=== PATIENT | female | born 1970 | race Caucasian/White ===

== ENCOUNTER 2021-01-10 12:35 | Day surgery (SDCO) | payer MEDICARE ==
[~2021-01-10] VITALS: Ht 149.9 cm; Wt 83.5 kg
[~2021-01-10 12:35] MED LIST: ADVAIR 250-501 EACH INH; BUSPIRONE HCL15 MG PO; CRESTOR20 MG PO; CYCLOBENZAPRINE10 MG PO; DIFLUCAN 100MG100 MG PO; EFFIENT10 MG PO; FARXIGA10 MG PO; JANUMET 50-1,01 EACH PO; LASIX20 MG PO; LEXAPRO20 MG PO; LOPRESSOR25 MG PO; LOVAZA1 GM PO; MUCINEX 600MG600 MG PO; NICOTINE PATCH1 EAC2 TD; NORVASC5 MG PO; PLAVIX75 MG PO; PREDNISONE 20MG20 MG PO; PREDNISONE5 MG PO; ROBITUSSIN W/CODEINE PO; SINGULAIR10 MG PO; TESSALON PERLE100 MG PO; TRESIBA FL100 UNIT/1 SC; VIBRAMYCIN100 MG PO
[2021-01-10 13:48] LABS: BASOPHIL 0.2 % (0-2); EOSINOPHIL 0.2 % (0-5); HCT 52.7 % (37.0-47.0); HGB 16.5 g/dl (12.5-16.0); LYMPHOCYTE 5.5 % (15-48); MCH 27.7 pg (25.0-31.0); MCHC 31.3 g/dL (32.0-36.0); MCV 88.6 fL (78.0-100.0); MONOCYTE 7.9 % (0-12); MPV 10.1 fL (6.0-9.5); NEUTROPHIL 85.6 % (41-80); NRBC 0; PLT 285 K/uL (150-400); RBC 5.95 M/uL (4.20-5.40); RDW 14.6 % (11.5-14.0); WBC 16.5 K/uL (4.0-10.5)
[2021-01-10 13:57] LABS: ALBUMIN 3.5 g/dL (3.4-5.0); BILIRUBIN - TOTAL 0.4 mg/dL (0.2-1.0); BUN/CREAT RATIO (CALC) 42.6 RATIO; CREATININE 0.54 mg/dL (0.51-0.95); GLOBULIN (CALCULATION) 3.4 g/dL; POTASSIUM 4.2 mmol/L (3.5-5.1); TOTAL PROTEIN 6.9 g/dL (6.4-8.2)
[2021-01-10 14:33] LABS: CORONAVIRUS 2019 SARS-COV-2 NEGATIVE (NEGATIVE); INFLUENZA A NAA NEGATIVE (NEGATIVE)
[2021-01-10] MEDS ORDERED: TRELEGY ELLIPT1 EACH PO (17:31)
[2021-01-11 06:03] LABS: BASOPHIL 0.2 % (0-2); EOSINOPHIL 0.2 % (0-5); HCT 48.2 % (37.0-47.0); HGB 15.2 g/dl (12.5-16.0); LYMPHOCYTE 11.1 % (15-48); MCH 28.1 pg (25.0-31.0); MCHC 31.5 g/dL (32.0-36.0); MCV 89.1 fL (78.0-100.0); MONOCYTE 9.3 % (0-12); MPV 9.4 fL (6.0-9.5); NEUTROPHIL 78.7 % (41-80); NRBC 0; PLT 237 K/uL (150-400); RBC 5.41 M/uL (4.20-5.40); RDW 14.4 % (11.5-14.0); WBC 12.5 K/uL (4.0-10.5)
[2021-01-11 06:21] LABS: BILIRUBIN - TOTAL 0.4 mg/dL (0.2-1.0); C-REACTIVE PROTEIN 5.5 mg/dL (<=0.90); CREATININE 0.5 mg/dL (0.51-0.95); GLOBULIN (CALCULATION) 3.6 g/dL; MAGNESIUM 2.1 mg/dL (1.8-2.4); PHOSPHORUS 3.8 mg/dL (2.6-4.7); POTASSIUM 4.5 mmol/L (3.5-5.1); TOTAL PROTEIN 6.6 g/dL (6.4-8.2)
--- NOTE | 2021-01-11 12:03 | NUR ---
reports that she is having some increased shortness of air, leaning over the bedside table looks to be in mild distress. o2 sat was taking 88% on 3l nc. notifed dr. casas of the distress and unable to give the scheduled breathing treatments or the prn breathing treatments at this time. new orders to give a one time order for ativan 0.5mg and to monitor for changes. 1207 ativan 0.5mg po was given and o2 sat was checked and it is 89% on 3 1/2 l nc. will monitor for changes. reports at this time it is some better.
--- NOTE | 2021-01-11 17:54 | NUR ---
1751 COMPLINTS OF INCREASED SHORTNESS OF AIR, SEEMS TO BE IN MILD DISTRESS AND O2 SAT 90% ON 3L NC.
--- NOTE | 2021-01-11 17:57 | NUR ---
1751 VENTOLIN 2.5MG BREATHING NEBS GIVEN WILL MONITOR FOR CHANGES, O2 SAT 90% ON 3L NC. 1756 DR. ACOSTA WAS NOTIFED AND THERE ARE NO NEW ORDERS AT THIS TIME. WILL CONTINUE TO MONITOR FOR CHANGES.
--- NOTE | 2021-01-11 18:10 | NUR ---
1805 BREATHIG TREATMENT HAS FINISHED AND REPORTS THAT SHE IS FEELING MUCH BETTER, BREATHING A LITTLE BETTER. O2 SAT 90% ON 3L NC. WILL CONTINUE TO MONITOR FOR CHANGES. DR. ACOSTA HAS ORDERED SOME MUNICEX TO START TONIGHT.
[2021-01-12 04:41] LABS: BASOPHIL 0.2 % (0-2); EOSINOPHIL 0 % (0-5); HCT 51.2 % (37.0-47.0); LYMPHOCYTE 10.1 % (15-48); MCH 27.7 pg (25.0-31.0); MCHC 31.3 g/dL (32.0-36.0); MCV 88.7 fL (78.0-100.0); MONOCYTE 8.6 % (0-12); MPV 9.4 fL (6.0-9.5); NEUTROPHIL 80.7 % (41-80); NRBC 0; PLT 250 K/uL (150-400); RBC 5.77 M/uL (4.20-5.40); WBC 11.3 K/uL (4.0-10.5)
[2021-01-12 05:12] LABS: BILIRUBIN - TOTAL 0.3 mg/dL (0.2-1.0); BUN/CREAT RATIO (CALC) 51.2 RATIO; CREATININE 0.43 mg/dL (0.51-0.95); POTASSIUM 4.2 mmol/L (3.5-5.1)
[2021-01-12] MEDS ORDERED: SINGULAIR10 MG PO (10:07)
[2021-01-12] MEDS ORDERED: LACTOBACILLUS1 EACH PO (10:07)
[2021-01-12] MEDS ORDERED: PREDNISONE 10MG10 MG PO (10:07)
[2021-01-12] MEDS ORDERED: DUONEB 2.5-0.5M1 AMP NEB (10:07)
[2021-01-12] MEDS ORDERED: SPIRIVA 18MCG18 MCG INH (10:07)
[2021-01-12] MEDS ORDERED: SYMBICORT 80-10.2 GM INH (10:07)
== END 2021-01-12 11:02 | disposition home or self-care (01) ==
LOC: FER 12:35 → FMS 14:51
PROVIDERS: Internal Medicine; ADMIT Family Medicine
DX: J44.1 Chronic obstructive pulmonary disease with (acute) exacerbation (principal); J44.0 Chronic obstructive pulmonary disease with (acute) lower respiratory infection; J18.9 Pneumonia, unspecified organism; E11.9 Type 2 diabetes mellitus without complications; I10 Essential (primary) hypertension; I25.10 Atherosclerotic heart disease of native coronary artery without angina pectoris; E78.5 Hyperlipidemia, unspecified; I25.2 Old myocardial infarction; G47.33 Obstructive sleep apnea (adult) (pediatric); Z88.0 Allergy status to penicillin; Z88.8 Allergy status to other drugs, medicaments and biological substances; Z79.899 Other long term (current) drug therapy; Z20.822 Contact with and (suspected) exposure to COVID-19
CPT/HCPCS: 36415; 71045; 80053; 82962; 83735; 83880; 84100; 84145; 84484; 85025; 86140; 93005; 94010; 94640; 94760; 94762; G0378; J1100; J1650; J1956; J7050; J7512; U0002

== ENCOUNTER 2021-02-01 11:07 | Emergency (ER) | payer MEDICARE ==
[~2021-02-01 11:07] MED LIST changes: +DUONEB 2.5-0.5M1 AMP NEB; +LACTOBACILLUS1 EACH PO; +PREDNISONE 10MG10 MG PO; +SPIRIVA 18MCG18 MCG INH; +SYMBICORT 80-10.2 GM INH; +TRELEGY ELLIPT1 EACH PO
[2021-02-01] MEDS ORDERED: NAPROXEN500 MG PO (13:30)
[2021-02-01] MEDS ORDERED: PERCOCET 10-321 EACH PO (13:30)
== END 2021-02-01 15:48 | disposition home or self-care (01) ==
LOC: FER 11:07
DX: S52.321A Displaced transverse fracture of shaft of right radius, initial encounter for closed fracture (principal); S52.611A Displaced fracture of right ulna styloid process, initial encounter for closed fracture; S22.32XD Fracture of one rib, left side, subsequent encounter for fracture with routine healing; M25.562 Pain in left knee; J44.9 Chronic obstructive pulmonary disease, unspecified; I10 Essential (primary) hypertension; E11.9 Type 2 diabetes mellitus without complications; F17.210 Nicotine dependence, cigarettes, uncomplicated; W01.0XXA Fall on same level from slipping, tripping and stumbling without subsequent striking against object, initial encounter; Y92.009 Unspecified place in unspecified non-institutional (private) residence as the place of occurrence of the external cause
CPT/HCPCS: 71101; 73090; 73560; 96372; J1170

== ENCOUNTER → 2021-02-06 | Day surgery (SDC) | payer MEDICARE ==
[2021-02-03 12:58] LABS: HCG (URINE) SCREEN NEGATIVE (NEGATIVE)
[2021-02-03 13:48] LABS: BASOPHIL 0.4 % (0-2); HCT 43.5 % (37.0-47.0); HGB 13.8 g/dl (12.5-16.0); LYMPHOCYTE 23.6 % (15-48); MCHC 31.7 g/dL (32.0-36.0); MCV 88.2 fL (78.0-100.0); MONOCYTE 9.1 % (0-12); MPV 9.4 fL (6.0-9.5); NEUTROPHIL 65.6 % (41-80); NRBC 0; PLT 223 K/uL (150-400); RBC 4.93 M/uL (4.20-5.40); RDW 14.3 % (11.5-14.0); WBC 9.6 K/uL (4.0-10.5)
[2021-02-03 14:12] LABS: CREATININE 0.42 mg/dL (0.51-0.95); POTASSIUM 3.8 mmol/L (3.5-5.1)
--- NOTE | 2021-02-03 14:52 | NUR ---
CASE CANCELLED PER ANESTHESIA. PT AGREES TO PLAN. IV DC'D
[~2021-02-06] VITALS: Ht 149.9 cm; Wt 86.2 kg
[~2021-02-06] MED LIST changes: +NAPROXEN500 MG PO; +PERCOCET 10-321 EACH PO
== END | disposition home or self-care (01) ==
LOC: FAS 02-03 12:36
PROVIDERS: Anesthesiology
DX: S52.571A Other intraarticular fracture of lower end of right radius, initial encounter for closed fracture (principal); I25.2 Old myocardial infarction; I10 Essential (primary) hypertension; I25.10 Atherosclerotic heart disease of native coronary artery without angina pectoris; J45.909 Unspecified asthma, uncomplicated; J44.9 Chronic obstructive pulmonary disease, unspecified; E11.9 Type 2 diabetes mellitus without complications; E66.9 Obesity, unspecified; F17.200 Nicotine dependence, unspecified, uncomplicated; M19.90 Unspecified osteoarthritis, unspecified site; Z95.5 Presence of coronary angioplasty implant and graft; Z79.02 Long term (current) use of antithrombotics/antiplatelets; W19.XXXA Unspecified fall, initial encounter; Y92.008 Other place in unspecified non-institutional (private) residence as the place of occurrence of the external cause
CPT/HCPCS: 36415; 73100; 80048; 84703; 85025; J1100; J2250; J2795; J3010; J7120

== ENCOUNTER → 2021-02-06 | Day surgery (SDC) | payer MEDICARE | END | disposition home or self-care (01) | LOC: FAS 06:45 | DX: S52.571A Other intraarticular fracture of lower end of right radius, initial encounter for closed fracture (principal); J44.9 Chronic obstructive pulmonary disease, unspecified; E66.9 Obesity, unspecified; I25.2 Old myocardial infarction; I10 Essential (primary) hypertension; I25.10 Atherosclerotic heart disease of native coronary artery without angina pectoris; E11.9 Type 2 diabetes mellitus without complications; M19.90 Unspecified osteoarthritis, unspecified site; J45.909 Unspecified asthma, uncomplicated; F17.200 Nicotine dependence, unspecified, uncomplicated; Z95.5 Presence of coronary angioplasty implant and graft; Z79.02 Long term (current) use of antithrombotics/antiplatelets; Z88.5 Allergy status to narcotic agent; Z88.0 Allergy status to penicillin; Z88.8 Allergy status to other drugs, medicaments and biological substances; W19.XXXA Unspecified fall, initial encounter; Y92.009 Unspecified place in unspecified non-institutional (private) residence as the place of occurrence of the external cause | CPT/HCPCS: 36415; 73100; 80048; 84703; 85025; C1713; J1100; J2001; J2250; J2795; J3010; J7120 ==

== ENCOUNTER 2021-12-26 18:56 | Emergency (ER) | payer MEDICARE, OTHER ==
[2021-12-26 19:59] LABS: BASOPHIL 0.4 % (0-2); EOSINOPHIL 1.7 % (0-5); HCT 43.3 % (37.0-47.0); HGB 13.7 g/dl (12.5-16.0); LYMPHOCYTE 24.4 % (15-48); MCH 26.6 pg (25.0-31.0); MCHC 31.6 g/dL (32.0-36.0); MCV 83.9 fL (78.0-100.0); MONOCYTE 8.2 % (0-12); MPV 9.6 fL (6.0-9.5); NEUTROPHIL 64.8 % (41-80); NRBC 0; PLT 312 K/uL (150-400); RBC 5.16 M/uL (4.20-5.40); RDW 16.3 % (11.5-14.0); WBC 14.7 K/uL (4.0-10.5)
[2021-12-26 20:20] LABS: ALBUMIN 3.4 g/dL (3.4-5.0); BILIRUBIN - TOTAL 0.2 mg/dL (0.2-1.0); BUN/CREAT RATIO (CALC) 30.5 RATIO; CREATININE 0.59 mg/dL (0.51-0.95); GLOBULIN (CALCULATION) 3.8 g/dL; POTASSIUM 4.2 mmol/L (3.5-5.1); TOTAL PROTEIN 7.2 g/dL (6.4-8.2)
== END 2021-12-26 22:33 | disposition home or self-care (01) ==
LOC: FER 18:56
PROVIDERS: Emergency Medicine
DX: R07.89 Other chest pain (principal); I10 Essential (primary) hypertension; E11.9 Type 2 diabetes mellitus without complications
CPT/HCPCS: 36415; 71045; 80053; 84484; 85025; 93005; 94640; 94664; J1885; J2930